=== PATIENT | female | born 1990 | race Caucasian/White ===

== ENCOUNTER → 2018-03-27 | Outpatient (CLI) | payer BC ==
[~2018-03-27] MED LIST: OXYC-854 PO
--- NOTE | 2018-03-27 10:23 | RADIOLOGY IMAGING REPORT ---
FACILITY: [facility] PATIENT NAME: Johanne Love : 1990 MR: [id number] V: [id number] EXAM DATE: ORDERING PHYSICIAN: POLLO LOPEZ TECHNOLOGIST: [place] [facility] [place]: Johanne Love : 1990 Visit/Account:[id number] Date of Sevice: 03/27/2018 ANKLE 3 VIEW MIN LEFT Indication: Ankle pain. Recent fall. Comparison: None Available Findings: 3 views of the left ankle are obtained. No acute fracture or dislocation. Ankle mortise is maintained . No joint effusion. No acute osseous or joint centered abnormality. IMPRESSION: 1. No acute osseous abnormality of the left ankle. Report Dictated By: Severo Mckenzie at 03/27/2018 10:17 AM Report E-Signed By: Severo Mckenzie at 03/27/2018 10:18 AM [id number]
== END ==
LOC: RAD 09:45
PROVIDERS: ATTEND Family Medicine
DX: M25.572 Pain in left ankle and joints of left foot (principal); W19.XXXA Unspecified fall, initial encounter